=== PATIENT | male | born 1940 | race Caucasian/White ===

== ENCOUNTER 2019-06-27 06:50 | Outpatient (CLI) | payer MEDICARE, OTHER ==
[2019-06-27] VITALS (13 sets, daily range): BP systolic 105–160; BP diastolic 63–92; PULSE 68–82
[~2019-06-27] VITALS: Ht 175.3 cm; Wt 77.1 kg
[~2019-06-27 06:50] MED LIST: ASPIRIN 81M81 MG/TA2 PO; PERCOCET 325 MG1 TAB PO; ZESTRIL 20MG TA20 MG PO; ZETIA 10MG TAB10 MG PO
[2019-06-27] MEDS ORDERED: NITROSTAT0.3 MG SL (07:10)
[2019-06-27] MEDS ORDERED: nitro patch (07:11)
[2019-06-27 07:26] LABS: INR 1.1 (0.8-3.0); PROTHROMBIN TIME 12.4 SECONDS (9.7-12.8)
--- NOTE | 2019-06-27 07:45 | NUR ---
PT AMBULATED TO CT ROOM. PLACED IN CORRECT POSITION ON CT TABLE. MONITORING EQUIPMENT PLACED. IMAGES DONE AND SENT TO
--- NOTE | 2019-06-27 08:00 | NUR ---
PROCEDURE COMPLETED. CXR TO BE DONE IN 1 HOUR. PT RECIEVED NO MEDS. SITE HAS A SM AMT OF BLOOD ON THE DRESSING. PT TAKEN BY CART TO EU 9.
--- NOTE | 2019-06-27 08:20 | NUR ---
Denies pain at this time. Bandaid to right upper chest CD&I. VSS
--- NOTE | 2019-06-27 11:09 | NUR ---
INT discontinued intact. Discharge instructions given. transferred to private car by kevin
== END 2019-06-27 11:09 | disposition home or self-care (01) ==
LOC: COL.RAD 06:50
PROVIDERS: Family Medicine
DX: R91.8 Other nonspecific abnormal finding of lung field (principal)

== ENCOUNTER 2019-07-14 10:51 | Day surgery (SDC) | payer MEDICARE, OTHER ==
[2019-07-14] VITALS (11 sets, daily range): BP systolic 87–151; BP diastolic 56–89; PULSE 61–78; TEMP 98.1
[~2019-07-14] VITALS: Ht 175.3 cm; Wt 77.6 kg
[~2019-07-14 10:51] MED LIST changes: +NITRO-DUR0.4 MG/PAT TD; +NITROSTAT0.3 MG SL
[2019-07-14 11:40] LABS: HEMATOCRIT 43.2 % (42.0-52.0); HEMOGLOBIN 14.4 g/dl (13.5-18.0); MEAN CELL VOLUME 98 fl (80.0-100.0); MEAN CORPUSCULAR HEMOGLOBIN 33 pg (27.0-31.0); MEAN CORPUSCULAR HGB CONC 33 g/dl (33.0-37.0); MEAN PLATELET VOLUME 10.2 fl (7.4-10.4); PLATELET COUNT 153 K/mm3 (130-400); RED BLOOD COUNT 4.39 M/mm3 (4.20-5.60); REDCELL DISTRIBUTION WIDTH-CV 12.8 % (11.5-14.5)
[2019-07-14] MEDS ORDERED: LASIX 20MG TABL20 MG PO (11:43)
[2019-07-14] MEDS ORDERED: NORVASC2.5 MG PO (11:44)
[2019-07-14] MEDS ORDERED: ATROVENT NASAL15 ML NS (11:45)
[2019-07-14 11:49] LABS: PROTHROMBIN TIME 11.7 SECONDS (9.7-12.8)
[2019-07-14 11:51] LABS: PARTIAL THROMBOPLASTIN TIME 32.2 SECONDS (26.0-37.0)
[2019-07-14 11:52] LABS: CALCIUM 9.2 mg/dL (8.4-10.2); CREATININE, serum 1.7 (0.66-1.25); POTASSIUM 4.5 mmol/L (3.4-5.0)
--- NOTE | 2019-07-14 14:02 | NUR ---
SEE MERGE FOR MEDICATION ADMINISTRATION TIMES AND INTRA AND POST SEDATION ASSESSMENTS.
[2019-07-14] MEDS ORDERED: COREG 3.123.125 MG/T PO (15:13)
--- NOTE | 2019-07-14 15:24 | NUR ---
bedside hand off report to jackie melgar . pt is alert and oriented. hemostasis noted. dressing c/d/i. pt complaining of lower back pain. pillow placed on left side of patient to help with back pain.
--- NOTE | 2019-07-14 15:46 | NUR ---
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 rt groin site looks good, no bleeding or hematoma noted, cms intact distal. Pt c/o low back pain, this improved a bit with massage to rt lower back. hob elevated to 20-25deg so pt could take sips of pepsi, which he did with no problem.
--- NOTE | 2019-07-14 19:13 | NUR ---
Pt has done well during recovery, he has been able to eat and drink withno problem, has been able to use urinal as needed, and after bedrest period was ambulatory with steady gait to br with no dizziness or other problem. saline lock to lfa dc'd with cath intact, dressing applied. dc/fu and rx instructions were reviewed in depth with pt and , and they deny concerns at time of departure. written isntructions provided. pt was escorted to exit via wheelchair with .
== END 2019-07-14 19:15 | disposition home or self-care (01) ==
LOC: COL.CAR 10:51
PROVIDERS: Internal Medicine Cardiovascular Disease
DX: I25.119 Atherosclerotic heart disease of native coronary artery with unspecified angina pectoris (principal); I42.9 Cardiomyopathy, unspecified; I08.3 Combined rheumatic disorders of mitral, aortic and tricuspid valves; I13.0 Hypertensive heart and chronic kidney disease with heart failure and stage 1 through stage 4 chronic kidney disease, or unspecified chronic kidney disease; I50.9 Heart failure, unspecified; N18.3 Chronic kidney disease, stage 3 (moderate); F17.210 Nicotine dependence, cigarettes, uncomplicated; I71.4 Abdominal aortic aneurysm, without rupture; E78.2 Mixed hyperlipidemia; J44.9 Chronic obstructive pulmonary disease, unspecified; G89.29 Other chronic pain; Z95.1 Presence of aortocoronary bypass graft; Z79.82 Long term (current) use of aspirin; Z79.51 Long term (current) use of inhaled steroids; Z80.9 Family history of malignant neoplasm, unspecified
CPT/HCPCS: J1644; J2250; J2704; J3010; Q9967

== ENCOUNTER → 2019-08-18 | Outpatient (CLI) | payer MEDICARE, OTHER ==
[~2019-08-18] MED LIST changes: +ATROVENT NASAL15 ML NS; +COREG 3.123.125 MG/T PO; +LASIX 20MG TABL20 MG PO; +NORVASC2.5 MG PO
== END ==
LOC: COL.PUL 12:49
DX: C34.11 Malignant neoplasm of upper lobe, right bronchus or lung (principal)